=== PATIENT | female | born 1975 | race Caucasian/White ===

== ENCOUNTER 2019-04-07 12:21 | Emergency (ER) | payer OTHER ==
[~2019-04-07] VITALS: Ht 167.6 cm; Wt 49.9 kg
[2019-04-07] MEDS ORDERED: NORCO 5-325 TA1 EAC1 PO (15:43)
[2019-04-07 16:12] VITALS: BP 110/80
== END 2019-04-07 16:13 | disposition home or self-care (01) ==
LOC: M.ERS 12:21
DX: S52.572A Other intraarticular fracture of lower end of left radius, initial encounter for closed fracture (principal); J45.909 Unspecified asthma, uncomplicated; G25.81 Restless legs syndrome; Z88.7 Allergy status to serum and vaccine; W18.39XA Other fall on same level, initial encounter; Y92.89 Other specified places as the place of occurrence of the external cause; Y93.89 Activity, other specified; Y99.8 Other external cause status